=== PATIENT | female | born 1955 | race Caucasian/White ===

== ENCOUNTER → 2017-02-20 | Outpatient (CLI) | payer MEDICARE, MEDICAID ==
[~2017-02-20] MED LIST: ALBU6.7H4 IH; BUSP30TA8 PO; CLON0.5T4 PO; ESOM40CA24 PO; FEXO180T66 PO; LEVO300T8 PO; METO10TA3 PO; SIMV20TA6 PO; SOLI5TAB6 PO; TRAZ-58 PO; ZOLP5TAB8 PO
== END ==
LOC: WC.BC 14:57
DX: Z12.31 Encounter for screening mammogram for malignant neoplasm of breast (principal)
CPT/HCPCS: 77063; G0202